=== PATIENT | female | born 1960 | race African-American/Black ===

== ENCOUNTER 2022-05-17 01:03 | Inpatient (IN) | payer BC ==
[~2022-05-17] VITALS: Ht 160 cm; Wt 72.6 kg
[~2022-05-17 01:03] MED LIST: CLOP75TA PO; DIAZ5TAB8 PO; PRE.625 PO; PROP20TA75 PO; TEMA30CA23 PO; VITORIN; WARF-83 PO; WARF10TA19 PO
[2022-05-17 01:07] VITALS: BP_SYST 130
--- NOTE | 2022-05-17 01:10 | NUR ---
TO LOBBY A/W BED AMBULATORY
--- NOTE | 2022-05-17 01:50 | NUR ---
pathology technologist at bedside.
[2022-05-17 02:04] LABS: BASOPHILS # (AUTO) 0.1 K/uL (0.00-0.22); BASOPHILS % (AUTO) 0.8 % (0.0-2.0); EOSINOPHILS # (AUTO) 0.2 K/uL (0-0.4); EOSINOPHILS % (AUTO) 3.1 % (0.0-4.0); HEMATOCRIT 39.4 % (36-48); HEMOGLOBIN 13.4 g/dL (12.0-16.0); LYMPHOCYTES # (AUTO) 3.1 K/uL (2.5-16.5); LYMPHOCYTES % (AUTO) 41.7 % (20.5-51.1); MEAN CORPUSCULAR HEMOGLOBIN 30 pg (27-31); MEAN CORPUSCULAR HGB CONC 34 g/dL (33-37); MEAN CORPUSCULAR VOLUME 89.3 fL (80-94); MONOCYTES # (AUTO) 0.6 K/uL (0.8-1.0); NEUTROPHILS # (AUTO) 3.5 K/uL (1.8-7.7); NEUTROPHILS % (AUTO) 46.4 % (42.2-75.2); PLATELET COUNT (AUTO) 299 K/uL (140-450); RED BLOOD CELL COUNT(AUTO) 4.41 MIL/uL (4.20-5.40); WHITE BLOOD COUNT (AUTO) 7.4 K/uL (4.8-10.8)
--- NOTE | 2022-05-17 02:13 | NUR ---
Pt coming from home ambulatory with steady gait accompanied by who is waiting for her in the waiting room. Pt c/o chest pain that started at 10pm last night, continuous, non-radiating. Pt has hx of MN and HTN. Allergy list is listed. VSS. A&Ox4. Denies sob. Respirations even and unlabored. Pupils PERRLA. Cap refill <3 seconds. Denies n/v. Bed in lowest position and connected to cardiac nurse practitioner.
[2022-05-17 02:27] LABS: ALBUMIN 4.3 g/dL (3.4-5.0); ANION GAP 17.7 (8-16); CARBON DIOXIDE 21.6 mmol/L (21-32); CREATININE 0.9 mg/dL (0.6-1.3); POTASSIUM 3.3 mmol/L (3.5-5.1); TOTAL BILIRUBIN 0.3 mg/dL (0.0-1.0)
[2022-05-17] MEDS ORDERED: MORPHINE SULFATE 4 MG/ML SYR IM ONE (02:30)
[2022-05-17] MEDS ORDERED: CALC500C17 PO (03:08)
[2022-05-17] MEDS ORDERED: SACU1TAB5 PO (03:08)
[2022-05-17] MEDS ORDERED: CARV6.25 PO (03:08)
[2022-05-17] MEDS ORDERED: APIX5TAB PO (03:08)
--- NOTE | 2022-05-17 03:09 | NUR ---
SWAB COLLECTED AND HANDED TO LAB
[2022-05-17] MEDS ORDERED: ONDANSETRON 4 MG ODT PO ONE (04:00)
[2022-05-17] MEDS ORDERED: ACETAMINOPHEN EXTRA STRENGTH 500 MG TAB PO ONE (04:40)
--- NOTE | 2022-05-17 04:45 | NUR ---
ATTEMPTED TO ESTABLISH IV WITH NO SUCCESS X3. CHARLINE MENDOSA NOTIFIED. ANOTHER RN WILL ATTEMPT
--- NOTE | 2022-05-17 05:15 | NUR ---
ANOTHER NURSE ATTEMPTED TO ESTABLISH IV WITH NO SUCCESS X3. CHARLINE MENDOSA NOTIFIED. ANOTHER RN WILL ATTEMPT
--- NOTE | 2022-05-17 05:50 | NUR ---
IV ESTABLISHED 22G LEFT FOOT.
--- NOTE | 2022-05-17 06:00 | NUR ---
CALLED LAB TO COME DRAW 2ND TROP. STATED THAT TROP WAS UNABLE TO BE COLLECTED WHEN IV WAS ESTABLISHED. LAB STATED THAT THEY WOULD SEND SOMEONE OVER TO COLLECT IT.
[2022-05-17] MEDS ORDERED: TRAZ150T36 PO (06:13)
[2022-05-17] MEDS ORDERED: GABA400C PO (06:14)
[2022-05-17] MEDS ORDERED: RIVA20TA PO (06:18)
[2022-05-17] MEDS ORDERED: CYCL-711 PO (06:30)
[2022-05-17] MEDS ORDERED: PROP20TA29 PO (06:31)
[2022-05-17] MEDS ORDERED: DIAZ10TA7 PO (06:33)
[2022-05-17] MEDS ORDERED: ATOR80TA27 PO (06:37)
[2022-05-17] MEDS ORDERED: IBUP-44 PO (06:37)
--- NOTE | 2022-05-17 06:45 | NUR ---
MED REC COMPLETE
--- NOTE | 2022-05-17 07:20 | NUR ---
LAB AT BEDSIDE
--- NOTE | 2022-05-17 07:25 | NUR ---
REPORT GIVEN TO BELGICA WHITEHEAD. TRANSFER OF CARE
--- NOTE | 2022-05-17 08:02 | NUR ---
pt given breakfast tray at bedside
[2022-05-17 08:07] LABS: BASOPHILS % (AUTO) 0.8 % (0.0-2.0); EOSINOPHILS # (AUTO) 0.2 K/uL (0-0.4); EOSINOPHILS % (AUTO) 2.9 % (0.0-4.0); HEMATOCRIT 37.9 % (36-48); HEMOGLOBIN 12.5 g/dL (12.0-16.0); LYMPHOCYTES # (AUTO) 2.6 K/uL (2.5-16.5); LYMPHOCYTES % (AUTO) 42.4 % (20.5-51.1); MEAN CORPUSCULAR HEMOGLOBIN 30 pg (27-31); MEAN CORPUSCULAR HGB CONC 33 g/dL (33-37); MEAN CORPUSCULAR VOLUME 89.9 fL (80-94); MONOCYTES # (AUTO) 0.5 K/uL (0.8-1.0); MONOCYTES % (AUTO) 8.2 % (1.7-9.3); NEUTROPHILS # (AUTO) 2.8 K/uL (1.8-7.7); NEUTROPHILS % (AUTO) 45.7 % (42.2-75.2); PLATELET COUNT (AUTO) 241 K/uL (140-450); RED BLOOD CELL COUNT(AUTO) 4.22 MIL/uL (4.20-5.40); RED CELL DISTRIBUTION WIDTH 14.2 % (11.6-13.7); WHITE BLOOD COUNT (AUTO) 6.1 K/uL (4.8-10.8)
--- NOTE | 2022-05-17 08:26 | NUR ---
PT C/O CHEST PAIN AT THIS TIME. NOTIFIED DR WOOTEN
[2022-05-17] MEDS ORDERED: CYCLOBENZAPRINE 10 MG TAB PO PRN (08:35)
[2022-05-17] MEDS ORDERED: IBUPROFEN 200 MG TAB PO PRN (08:35)
[2022-05-17 08:37] LABS: ANION GAP 14.8 (8-16); CARBON DIOXIDE 20.9 mmol/L (21-32); CREATININE 0.7 mg/dL (0.6-1.3); POTASSIUM 3.7 mmol/L (3.5-5.1)
[2022-05-17] MEDS ORDERED: ONDANSETRON 4 MG/2 ML VIAL IM/IVP PRN (08:40)
[2022-05-17] MEDS ORDERED: DOCUSATE SODIUM 100 MG GELCAP PO PRN (08:40)
[2022-05-17] MEDS ORDERED: ZOLPIDEM 5 MG TAB PO PRN (08:40)
[2022-05-17] MEDS ORDERED: ACETAMINOPHEN 325 MG TAB PO PRN (08:40)
[2022-05-17] MEDS ORDERED: POTASSIUM CHLORIDE 10 MEQ TABER PO PRN (08:40)
[2022-05-17] MEDS ORDERED: HYDROcodone/APAP 7.5/325 MG 1 TAB PO PRN (08:40)
[2022-05-17] MEDS ORDERED: guaiFENesin DM 200/20 MG-10 ML 10 ML UDC PO PRN (08:40)
[2022-05-17] MEDS ORDERED: lisinopriL 10 MG TAB PO SCH (09:00)
[2022-05-17] MEDS ORDERED: ATORVASTATIN 80 MG TAB PO SCH (09:00)
[2022-05-17] MEDS ORDERED: CALCIUM CARBONATE 500 MG TAB.CHEW PO SCH (09:00)
[2022-05-17] MEDS ORDERED: ASPIRIN 325 MG TAB PO SCH (09:15)
[2022-05-17 09:30] LABS: CHOL/HDL RATIO 4.6 (1-4.5); MAGNESIUM 1.8 mg/dL (1.8-2.4); PHOSPHORUS 3.8 mg/dL (2.5-4.9)
[2022-05-17] MEDS: carvediloL 6.25 MG TAB PO SCH ×2 (09:36→20:34)
[2022-05-17] MEDS: APIXABAN 2.5 MG TAB PO SCH ×2 (09:36→20:28)
[2022-05-17] MEDS: GABAPENTIN 100 MG CAP PO SCH ×2 (09:36→20:30)
--- NOTE | 2022-05-17 09:38 | NUR ---
PATIENT REFUSED LISINOPRIL, STATING IT CAUSES COUGH.
--- NOTE | 2022-05-17 10:11 | NUR ---
PT C/O 7/10 CHEST PAIN AT THIS TIME. WILL CARRY OUT PRN ORDER
[2022-05-17] MEDS: MORPHINE SULFATE 2 MG/ML SYR IVP PRN ×3 (10:17→22:27)
--- NOTE | 2022-05-17 10:17 | NUR ---
PT UNABLE TO PROVIDE URINE AT THIS TIME. WILL ATTEMPT AGAIN LATER
--- NOTE | 2022-05-17 16:20 | NUR ---
Patient will be admitted to care of DR WOOTEN. Admited to TELE. Will go to [id number]. Belongings list completed. Report to CHARLEY LINDO.
[2022-05-17 16:25] VITALS: BP 109/84
--- NOTE | 2022-05-17 16:25 | NUR ---
PT TRANSPORTED FROM ER TO MST UNIT VIA GURNEY. PT ABLE TO AMBULATE FROM [place] TO BED. RECEIVED REPORT FROM ER NURSE VENTURA FOR CONTINUITY OF CARE. PT A/A/O X4. ATTACHED TO ACCOUNT EXECUTIVE KEY ACCOUNTS. RESPIRATIONS EVEN AND UNLABORED ON RA. NO DISTRESS NOTED. COMPLAINING OF CHEST AND BACK PAIN 12/28. RN MYRA MADE AWARE. V/S AND MRSA SWAB TAKEN. PT CONTINENT TO BOWEL AND BLADDER. SKIN INTACT, WARM AND DRY TO TOUCH. IV SITE ON RIGHT FOOT 22G, SL. PT ORIENTED TO ROOM, UNIT AND ROUTINE. CALL LIGHT WITHIN REACH, SAFETY PRECAUTIONS IN PLACE.
--- NOTE | 2022-05-17 19:29 | NUR ---
GAVE BEDSIDE REPORT TO INFANT LEAD TEACHER NURSE [facility] FOR CONTINUITY OF CARE. ALL NEEDS MET THROUGHOUT SHIFT. WITH PENDING URINE SPECIMEN COLLECTION ENDORSED. PT IS IN STABLE CONDITION.
--- NOTE | 2022-05-17 19:30 | NUR ---
RECEIVED PATIENT IN BED AWAKE ALERT ORIENTED. PATIENT WELL RESTED. VERBALLY RESPONSIVE. NO DISTRESS. ON ROOM AIR. BREATHING REGULAR NON LABORED. AMBULATORY. SAFETY MEASURES IN PLACE. CALL LIGHT WITHIN REACH. FAMILY MEMBER AT BEDSIDE.
[2022-05-17 20:00] VITALS: BP 123/75
--- NOTE | 2022-05-17 20:28 | NUR ---
ALL 2100 SCHEDULED MEDICATIONS ADMINISTERED. TOLERATED WELL.
[2022-05-17] MEDS ORDERED: traZODone 50 MG TAB PO SCH (21:00)
[2022-05-18] VITALS: BP 117/66
[2022-05-18] MEDS: MORPHINE SULFATE 2 MG/ML SYR IVP PRN ×2 (03:42→09:37)
[2022-05-18 04:00] VITALS: BP 111/66
[2022-05-18 06:40] LABS: BASOPHILS % (AUTO) 0.8 % (0.0-2.0); EOSINOPHILS # (AUTO) 0.3 K/uL (0-0.4); EOSINOPHILS % (AUTO) 4.4 % (0.0-4.0); HEMATOCRIT 34.7 % (36-48); HEMOGLOBIN 11.9 g/dL (12.0-16.0); LYMPHOCYTES # (AUTO) 2.9 K/uL (2.5-16.5); LYMPHOCYTES % (AUTO) 47.8 % (20.5-51.1); MEAN CORPUSCULAR HEMOGLOBIN 31 pg (27-31); MEAN CORPUSCULAR HGB CONC 34 g/dL (33-37); MEAN CORPUSCULAR VOLUME 89.3 fL (80-94); MONOCYTES # (AUTO) 0.6 K/uL (0.8-1.0); MONOCYTES % (AUTO) 9.4 % (1.7-9.3); NEUTROPHILS # (AUTO) 2.3 K/uL (1.8-7.7); NEUTROPHILS % (AUTO) 37.6 % (42.2-75.2); PLATELET COUNT (AUTO) 239 K/uL (140-450); RED BLOOD CELL COUNT(AUTO) 3.89 MIL/uL (4.20-5.40); RED CELL DISTRIBUTION WIDTH 13.8 % (11.6-13.7); WHITE BLOOD COUNT (AUTO) 6.1 K/uL (4.8-10.8)
[2022-05-18 06:53] LABS: CARBON DIOXIDE 25.5 mmol/L (21-32); CREATININE 0.9 mg/dL (0.6-1.3); POTASSIUM 3.5 mmol/L (3.5-5.1)
--- NOTE | 2022-05-18 07:28 | NUR ---
GAVE REPORT TO DAY SHIFT NURSE ADDIE FOR CONTINUITY OF CARE. PATIENT IN STABLE CONDITION.
[2022-05-18] MEDS ORDERED: ECOTRIN 81 MG TABEC PO SCH (09:00)
[2022-05-18] MEDS ORDERED: ASPI-1856 PO (09:00)
--- NOTE | 2022-05-18 10:23 | NUR ---
PATIENT HAS BEEN SCREENED AND CATEGORIZED LOW NUTRITION RISK. PATIENT WILL BE SEEN WITHIN 7 DAYS OF ADMISSION. 05/24/22 REVIEWED BY GLADYS DIAZ RD
[2022-05-18] MEDS: APIXABAN 2.5 MG TAB PO SCH (10:38)
== END 2022-05-18 13:13 | disposition home or self-care (01) | DRG 313 ==
LOC: MED 01:03 → MTU 05:50
PROVIDERS: ADMIT Student in an Organized Health Care Education/Training Program; ATTEND Student in an Organized Health Care Education/Training Program
DX: R07.89 Other chest pain (principal); I10 Essential (primary) hypertension; Z20.822 Contact with and (suspected) exposure to COVID-19; I73.9 Peripheral vascular disease, unspecified; E78.5 Hyperlipidemia, unspecified; I25.2 Old myocardial infarction; Z86.718 Personal history of other venous thrombosis and embolism; Z88.5 Allergy status to narcotic agent; Z88.8 Allergy status to other drugs, medicaments and biological substances; Z90.89 Acquired absence of other organs; Z90.710 Acquired absence of both cervix and uterus
CPT/HCPCS: 36415; 71045; 80048; 80053; 83735; 83880; 84100; 84484; 85025; 85379; 87081; 96372; 99285; J2270; Q0092